=== PATIENT | male | born 1975 | race Caucasian/White ===

== ENCOUNTER → 2021-11-13 | Outpatient (CLI) | payer OTHER | LOC: M LAB 14:08 | PROVIDERS: ATTEND Urology | DX: N53.12 Painful ejaculation (principal) ==

== ENCOUNTER → 2022-03-05 | Outpatient (CLI) | payer OTHER | LOC: M PLAIMG 07:33 | PROVIDERS: ATTEND Physician Assistant | DX: R60.9 Edema, unspecified (principal); M25.522 Pain in left elbow ==

== ENCOUNTER 2022-04-22 11:51 | Emergency (ER) | payer OTHER ==
[~2022-04-22] VITALS: Ht 180.3 cm; Wt 97.7 kg
[2022-04-22 13:54] LABS: BASO # 0.1 10^3/uL (0.0-0.2); BASO % 0.4 % (0.0-1.0); EOS # 0.1 10^3/uL (0.0-0.5); EOS % 0.5 % (0.0-3.0); HEMATOCRIT 45.1 % (42.0-52.0); HEMOGLOBIN 15.1 g/dl (13.5-17.5); LYMPH # 1.2 10^3/uL (1.5-5.0); LYMPH % 8.3 % (24.0-44.0); MEAN CORPUSCULAR HEMOGLOBIN 30.4 pg (27.0-33.0); MEAN CORPUSCULAR HGB CONC 33.5 g/dl (32.0-36.5); MEAN CORPUSCULAR VOLUME 90.9 fl (80.0-96.0); MONO # 0.8 10^3/uL (0.0-0.8); MONO % 5.7 % (2.0-8.0); NEUTROPHILS # 11.9 10^3/uL (1.5-8.5); NEUTROPHILS % 84.2 % (36.0-66.0); PLATELET COUNT, AUTOMATED 288 10^3/uL (150-450); RED BLOOD COUNT 4.96 10^6/uL (4.30-6.10); WHITE BLOOD COUNT 14.2 10^3/uL (4.0-10.0)
[2022-04-22 14:29] LABS: ALBUMIN 4.2 G/DL (3.2-5.2); BILIRUBIN,DIRECT 0.1 MG/DL (<0.4); BILIRUBIN,TOTAL 0.3 MG/DL (0.3-1.2); TOTAL PROTEIN 7.3 G/DL
[2022-04-22] MEDS ORDERED: MORPHINE 4 MG/ML 1ML VIAL/SYRINGE IV ONE (14:40)
[2022-04-22] MEDS ORDERED: ONDANSETRON 4MG 2ML VIAL IV ONE (14:40)
[2022-04-22] MEDS ORDERED: TAMSULOSIN 0.4 MG CAP PO ONE (15:45)
[2022-04-22] MEDS ORDERED: PERCOCET 5MG/325MG TAB PO ONE (15:45)
[2022-04-22] MEDS ORDERED: CIPROFLOXACIN 500MG TABLET PO ONE (15:45)
[2022-04-22] MEDS ORDERED: ONDA4TAB6 PO (16:02)
[2022-04-22] MEDS ORDERED: PERC5TAB12 PO (16:02)
[2022-04-22] MEDS ORDERED: FLOM0.4C39 PO (16:02)
[2022-04-22] MEDS ORDERED: CIPR-249 PO (16:02)
[2022-04-22 16:13] VITALS: BP 139/86
== END 2022-04-22 16:27 | disposition home or self-care (01) ==
LOC: M ED 11:51 → EDBD 11:51 → M ED 16:27
DX: N20.1 Calculus of ureter (principal); Z87.442 Personal history of urinary calculi
CPT/HCPCS: 74176; 76775; 80047; 80076; 81000; 81015; 83690; 85025; 87086; 96374; 96375; 99284; J2270; J2405

== ENCOUNTER → 2022-05-22 | Outpatient (CLI) | payer OTHER ==
[~2022-05-22] MED LIST: CIPR-249 PO; FLOM0.4C39 PO; ONDA4TAB6 PO; PERC5TAB12 PO
[2022-05-23 16:11] LABS: PSA TOTAL 1.7 ng/mL (0.0-4.0)
== END ==
LOC: M LAB 12:44
PROVIDERS: ATTEND Urology
DX: R97.20 Elevated prostate specific antigen [PSA] (principal)

== ENCOUNTER → 2022-05-27 | Outpatient (REF) | payer OTHER | LOC: M SMT 13:06 | PROVIDERS: ATTEND Urology | DX: N20.0 Calculus of kidney (principal) ==

== ENCOUNTER → 2023-02-17 | Outpatient (CLI) | payer OTHER | LOC: M PLAIMG 07:55 | PROVIDERS: ATTEND Physician Assistant | DX: J32.9 Chronic sinusitis, unspecified (principal) ==

== ENCOUNTER → 2023-05-27 | Outpatient (CLI) | payer OTHER | LOC: M RAD 13:12 | PROVIDERS: ATTEND Urology | DX: Z87.898 Personal history of other specified conditions (principal) ==

== ENCOUNTER → 2023-06-05 | Outpatient (REF) | payer OTHER | LOC: M LABSMT 09:06 | PROVIDERS: ATTEND Urology | DX: Z87.898 Personal history of other specified conditions (principal) ==

== ENCOUNTER → 2023-08-03 | Outpatient (CLI) | payer OTHER | LOC: M LAB 10:03 | PROVIDERS: ATTEND Urology | DX: Z87.898 Personal history of other specified conditions (principal) ==